=== PATIENT | male | born 1990 ===

== ENCOUNTER 2016-09-05 07:00 | Observation (INO) | payer OTHER ==
[~2016-09-05] VITALS: Ht 165.1 cm; Wt 78.0 kg
[2016-09-18] VITALS (13 sets, daily range): BP systolic 106–143; BP diastolic 62–89
[2016-09-18] MEDS ORDERED: Thrombin 5000 units TOPIC ONE (06:29)
[2016-09-18] MEDS ORDERED: Surgicel 4in x 8in TOPIC ONE ×2 (06:30→11:30)
[2016-09-18] MEDS ORDERED: Vancomycin 1gm inj IVPB ONE (06:30)
[2016-09-18] MEDS ORDERED: Lidocaine 1% Plain 30 ml INJ ONE (06:30)
[2016-09-18] MEDS ORDERED: Bupivacaine 0.5% Inj 30 ml vial INJ ONE (06:31)
[2016-09-18] MEDS ORDERED: Bacitracin 50000 Units Vial ONE (06:31)
[2016-09-18] MEDS ORDERED: Dexamethasone 20mg/5ml IVP ONE (07:00)
[2016-09-18] MEDS ORDERED: ceFAZolin sod 1 GM in NS 55 ML IVPB ONE (07:00)
[2016-09-18] MEDS ORDERED: NORCO 10-325 T1 EACH ORAL (08:51)
--- NOTE | 2016-09-18 10:55 | Pre-Procedure Note/Attestation ---
Pre-Procedure Note/Attestation Complete Prior to Procedure Planned Procedure: not applicable Procedure Narrative: Cervical Artificial Disc, possible ACDF C3-4, C4-5 Indications for Procedure Pre-Operative Diagnosis: Post trauma discogenic neck pain Attestation I attest that I discussed the nature of the procedure; its benefits; risks and complications; and alternatives (and the risks and benefits of such alternatives ), prior to the procedure, with the patient (or the patient's legal high school admissions representative). I attest that, if there was a reasonable possibility of needing a blood transfusion, the patient (or the patient's legal high school admissions representative) was given the [place] Department of Health Services standardized written summary, pursuant to the [place] Blood Safety Act ([place] Health and Safety Code # 1645, as amended). I attest that I re-evaluated the patient just prior to the surgery and that there has been no change in the patient's H&P, except as documented below: MELANIE BURROUGHS Sep 18, 2016 10:55
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
[2016-09-18] MEDS ORDERED: fentaNYL 250mcg/5ml ONE (11:30)
[2016-09-18] MEDS ORDERED: NS Irrig 1000ml ONE (11:30)
[2016-09-18] MEDS ORDERED: Dexamethasone 4mg/ml vial ONE (11:30)
[2016-09-18] MEDS ORDERED: Neostigmine 1mg/ml 10ml Inj ONE (11:30)
[2016-09-18] MEDS ORDERED: Lidocaine 1% MPF 10mg/ml 5ml ONE (11:30)
[2016-09-18] MEDS ORDERED: Glycopyrrolate 0.2mg/ml 1ml Vial ONE (11:30)
[2016-09-18] MEDS ORDERED: Zemuron 50mg/5ml Inj IV ONE (11:30)
[2016-09-18] MEDS ORDERED: Sterile Water Irrig 1000ml IRRIG ONE (11:30)
[2016-09-18] MEDS ORDERED: fentaNYL 100 mcg/2 mL IV ONE (11:30)
[2016-09-18] MEDS ORDERED: LR 1000ml ONE (11:30)
[2016-09-18] MEDS ORDERED: Propofol 10mg/ml 100ml btl IV ONE (11:30)
[2016-09-18] MEDS ORDERED: Labetalol 5mg/ml 20ml vial IV ONE (11:30)
[2016-09-18] MEDS ORDERED: Sterile Water For Irrig 2000ml IRRIG ONE (11:30)
[2016-09-18] MEDS ORDERED: LR 1000ml 1,000 ML IVLG SCH (11:43)
--- NOTE | 2016-09-18 11:43 | Anethesia Preoperative Eval ---
Anesthesia Pre-op PMH/ROS General Date of Evaluation: Sep 18, 2016 Time of Evaluation: 11:31 Anesthesiologist: Yogi ASA Score: ASA 2 Mallampati Score Class I : Soft palate, uvula, fauces, pillars visible Class II: Soft palate, uvula, fauces visible Class III: Soft palate, base of uvula visible Class IV: Only hard plate visible Mallampati Classification: Class II Surgeon: Jass Diagnosis: Back Pain Surgical Procedure: ADR C3-4, C5-6 Anesthesia History: none Family History: no anesthesia problems Allergies: Coded Allergies: No Known Allergies (Unverified , 09/17/16) Medications: see eMAR Past Medical History Neurologic/Psychiatric: Reports: depression/anxiety Endocrine: Reports: other - Enlarged Thyroid Anesthesia Pre-op Phys. Exam Physician Exam Last Vital Signs Date Time Temp Pulse Resp B/P Pulse Ox O2 Delivery O2 Flow Rate FiO2 09/18/16 07:46 98.4 86 20 133/82 99 Room Air Constitutional: NAD Neurologic: CN 2-12 intact Cardiovascular: RRR Respiratory: CTA Gastrointestinal: S/NT/ND Airway Exam Mallampati Score: Class II MO: full Teeth: intact Anesthesia Pre-op A/P Risk Assessment & Plan Assessment: ASA 2 Plan: GA, BIS, Glidescope Pre-Antibiotics Dru Grams Ancef IV Given Within 1 Hr of Incision: Yes Time Given: 12:16 Roberto Calix MD Sep 18, 2016 11:43
[2016-09-18] MEDS ORDERED: Norco 7.5mg/325mg tab ORAL PRN (11:45)
[2016-09-18] MEDS ORDERED: Ketorolac 60mg Inj IV PRN (11:45)
[2016-09-18] MEDS ORDERED: Midazolam 2mg/2ml Inj IVP PRN (11:45)
[2016-09-18] MEDS ORDERED: Atropine Inj 1mg/10ml Syr IV PRN (11:45)
[2016-09-18] MEDS ORDERED: Hydromorphone 0.5mg/0.5ml inj IVP PRN (11:45)
[2016-09-18] MEDS ORDERED: fentaNYL 100 mcg/2 mL IV PRN (11:45)
[2016-09-18] MEDS ORDERED: Norco 5mg/325mg tab ORAL PRN (11:45)
[2016-09-18] MEDS ORDERED: LORazepam Inj 2mg/ml 1ml IV PRN (11:45)
[2016-09-18] MEDS ORDERED: Metoclopramide 10mg/2ml Inj IVP PRN (11:45)
[2016-09-18] MEDS ORDERED: Ketorolac 30mg Inj IV PRN (11:45)
[2016-09-18] MEDS ORDERED: Meperidine 25mg/0.5ml Inj (FOR RIGORS ONLY) IV PRN (11:45)
[2016-09-18] MEDS ORDERED: DiphenhydrAMINE 50mg/ml Inj IVP PRN (11:45)
[2016-09-18] MEDS ORDERED: Oxycodone/Acetaminophen 5-325 ORAL PRN (11:45)
[2016-09-18] MEDS ORDERED: Acetaminophen (Non formulary) 100 ML IV ONE (12:00)
[2016-09-18] MEDS ORDERED: Muri-Lube ONE (12:50)
--- NOTE | 2016-09-18 14:55 | Brief Operative Note ---
Immediate Post Operative Note Operative Note Pre-op Diagnosis: Post trauma discogenic neck pain Procedure: ADR C3-4, C4-5 Xray SSEP microscope Post-op Diagnosis: same as pre-op Findings: consistent w/pre-op dx studies Surgeon: Jass DE LA PAZ Visual Manager: Jocelynn DURAN Anesthesiologist: Yogi DE LA PAZ Anesthesia: general Specimen: none Complications: none Condition: stable Estimated Blood Loss: minimal Drains: none Implant(s) used?: Yes MELANIE BURROUGHS Sep 18, 2016 14:55
--- NOTE | 2016-09-18 15:19 | Immediate Post-Op Evaluation ---
Immediate Post-Op Evalulation Immediate Post-Op Evalulation Procedure: ADR C3-4, C5-6 Date of Evaluation: Sep 18, 2016 Time of Evaluation: 15:28 IV Fluids: 1700 LR Blood Products: 0 Estimated Blood Loss: 75 Urinary Output: 0 Blood Pressure Systolic: 107 Blood Pressure Diastolic: 71 Pulse Rate: 69 Respiratory Rate: 16 O2 Sat by Pulse Oximetry: 100 Temperature (Fahrenheit): 97.6 Pain Score (1-10): 2 Nausea: No Vomiting: No Complications 0 Patient Status: awake, reacts, patent, extubated, none Hydration Status: adequate Dru Grams Ancef IV Given Within 1 Hr of Incision: Yes Time Given: 12:51 Roberto Calix MD Sep 18, 2016 15:19
[2016-09-18] MEDS ORDERED: Transderm Scop 1.5mg TDERMAL PRN (16:00)
[2016-09-18] MEDS: D5 1/2NS 1,000 ML IV SCH (16:00)
[2016-09-18] MEDS ORDERED: Chloraseptic Spray 20mL Bottle ORAL PRN (16:00)
[2016-09-18] MEDS ORDERED: Morphine Sulfate 4mg/ml Inj IM PRN (16:00)
[2016-09-18] MEDS ORDERED: HYDROmorphone 1mg/ml Carpuject SUBQ PRN (16:00)
--- NOTE | 2016-09-18 16:00 | Diagnostic Imaging Report ---
Indications: Neck pain radiating to back, cervical disc replacement Technique: The procedure including fluoroscopy performed by Dr. Regan. Portable intraoperative spot film images of cervical spine obtained in lateral projections. Findings: Comparison: None Initial image demonstrates localizing needle tip overlying the C3-4 disc space. Subsequent images demonstrate placement of prostheses within the C3-4 and C4-5 disc spaces. The C4-5 prosthesis appears to extend beyond the posterior margin of the adjacent vertebral bodies by approximately 1 mm. IMPRESSION: Intraoperative changes as described.
[2016-09-18] MEDS: Norco 10mg/325mg tab ORAL PRN (18:18)
--- NOTE | 2016-09-18 18:59 | Cardiology Progress Note ---
Assessment/Plan Assessment/Plan [id number] Objective Last 24 Hour Vital Signs Date Time Temp Pulse Resp B/P Pulse Ox O2 Delivery O2 Flow Rate FiO2 09/18/16 17:59 98.2 94 17 136/77 99 Nasal Cannula 09/18/16 17:15 97.7 16 119/72 98 Nasal Cannula 09/18/16 17:00 97.9 76 17 126/67 99 Nasal Cannula 3.0 09/18/16 16:45 98.1 76 16 143/79 99 Nasal Cannula 3.0 09/18/16 16:27 98.3 09/18/16 16:25 98.3 77 15 111/71 100 Nasal Cannula 3.0 09/18/16 16:10 86 15 115/75 100 Nasal Cannula 3.0 09/18/16 15:55 72 19 116/76 100 Nasal Cannula 3.0 09/18/16 15:40 72 19 122/75 100 Nasal Cannula 3.0 09/18/16 15:27 79 12 129/62 100 Nasal Cannula 3.0 09/18/16 15:22 73 18 113/73 100 Simple Mask 6.0 09/18/16 15:19 69 16 100 09/18/16 15:17 97.6 73 17 106/68 100 Simple Mask 6.0 09/18/16 07:46 98.4 86 20 133/82 99 Room Air TAYLOR MOYER Sep 18, 2016 18:59
--- NOTE | 2016-09-18 21:00 | Operative Note - Dictated ---
DATE OF OPERATION: 09/18/2016 PRIMARY SURGEON: Quan Regan M.D. DITCH TENDER: RENEE Lobato. ANESTHESIOLOGIST: Roberto Calix M.D. ANESTHESIA: General with intubation. ESTIMATED BLOOD LOSS: Minimal. COMPLICATIONS: None. POSTOP CONDITION: Good/stable. PREOPERATIVE DIAGNOSIS: Posttraumatic cervicogenic neck pain. POSTOPERATIVE DIAGNOSIS: Posttraumatic cervicogenic neck pain. OPERATIVE PROCEDURES: 1. C3-C4 and C4-C5 artificial disc replacement. 2. SSEP monitoring. 3. High-powered microscopic dissection. 4. Intraoperative fluoroscopy interpreted by surgeon. PROCEDURE IN DETAIL: The patient was brought to the operating room and in the supine position, general anesthesia with intubation was induced. Intravenous antibiotics and intravenous Decadron were administered 30 minutes prior to incision time. The anterior cervical region was sterilely prepped and draped free in usual sterile fashion. Transverse incision on left was placed sharply through dermis and epidermis at the appropriate interval. Electrocautery dissection was carried through the subcutaneous tissue to level of the platysmas muscle that was identified, isolated, and transected in line with the incision. Dissection was carried medial to the left sternocleidomastoid muscle and the carotid sheath between/through the deep cervical fascia and pretracheal fascia to the midline between the right and left longus colli muscles. Prevertebral fascia was incised. Spinal needle bent so as not to allow penetration greater than 3 mm was placed into the disc space. Cross-table imaging was obtained demonstrating the correct level for further dissection. Level was marked. Needle removed. Subperiosteal dissection of the longus colli muscles over the involved intervals. Retractors placed. C3-C4: Anterior inferior lip on C3 was resected under high-power magnification with retractors placed. C3-C4: Diskectomy performed to but not through the posterior longitudinal ligament. Midas-Bharath bur dissection utilized for flattening of the inferior C3 vertebral body. Subchondral bone was not violated any time. Resection of posterior longitudinal ligament. SSEP monitoring stable. No dural tears or leaks noted anytime during the procedure. Appropriate instrumentation sequences undertaken after sizing and determination of the appropriate height/depth of prosthesis with fluoroscopic guidance. Holes were drilled, utilized in the appropriate instrumentation followed with real cutting and implantation of the artificial disk. Fit was excellent. Fluoroscopic imaging demonstrated excellent alignment and position. The patient is stable. Retractor was moved to the C4-C5 interval. Annulotomy performed. Microdiscectomy performed. Resection of the anterior inferior lip of C4 vertebral body. Posterior anulus resected with decompression of spinal cord. No dural tears or leaks anytime during the procedure. SSEP monitoring stable. After appropriate trial utilization and determination, an artificial disc was implanted after appropriate drilling/real cutting and implantation of the artificial disk. Fit was excellent. Fluoroscopic guidance/imaging revealed excellent alignment. Wound was irrigated with antibiotic-containing saline. FloSeal applied. No obvious excoriation or laceration of vital structures. Sequential reapproximation of the platysmas muscle and subcutaneous tissue followed with transverse surgical strips and sterile bandage maintained in place with tape. The patient was awakened, extubated in the operating room, and transported to postop recovery in good stable condition. Quan Regan M.D. DR: ELÍAS JOB#: [id number] CC:
[2016-09-18] MEDS: ceFAZolin sod 1 GM in D5W 55 ML IV SCH (21:56)
[2016-09-19] VITALS: BP 146/106
[2016-09-19] MEDS: D5 1/2NS 1,000 ML IV SCH (00:03)
[2016-09-19 04:00] VITALS: BP 137/94
[2016-09-19] MEDS: Norco 10mg/325mg tab ORAL PRN (04:44)
[2016-09-19] MEDS: ceFAZolin sod 1 GM in D5W 55 ML IV SCH (04:45)
--- NOTE | 2016-09-19 07:19 | 48 Hour Post Anesthesia Eval ---
Post Anesthesia Evaluation Procedure: ADR C3-4, C5-6 Date of Evaluation: Sep 19, 2016 Time of Evaluation: 06:18 Blood Pressure Systolic: 137 0: 94 Pulse Rate: 94 Respiratory Rate: 15 Temperature (Fahrenheit): 97.6 O2 Sat by Pulse Oximetry: 99 Airway: patent Nausea: No Vomiting: No Pain Intensity: 2 Hydration Status: adequate Cardiopulmonary Status: Stable Mental Status/LOC: patient returned to baseline Follow-up Care/Observations: 0 Post-Anesthesia Complications: 0 Follow-up care needed: N/A Roberto Calix MD Sep 19, 2016 07:19
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
[2016-09-19 08:00] VITALS: BP 144/89
[2016-09-19] MEDS ORDERED: Tubing IV Secondary IV ONE (09:29)
[2016-09-19] MEDS ORDERED: D5NS 1000ml IV ONE (09:29)
--- NOTE | 2016-09-19 10:45 | Progress Note ---
DATE: 09/19/2016 ACUTE PAIN MANAGEMENT PHYSICIAN PROGRESS NOTE OBJECTIVE: VITAL SIGNS: Afebrile. Pulse 94, respirations 15, and oxygen saturation 99% on room air. LABORATORY STUDIES: No interval laboratory studies. MEDICATIONS: Medication administration record reviewed. Medications include antibiotics, Fioricet, Benadryl, Soma, Chloraseptic spray, [place], morphine, Mylanta, Zofran, Phenergan, scopolamine patch, and Dilaudid. I spent over 60 minutes in consultation today. I saw the patient at bedside. I discussed the case with the hospitalist, Dr. Morgan along with the charge nurse, RN, Venessa. The patient has been recovering well since his neck surgery yesterday. I did relationship counselor the patient to discontinue smoking. He has been swallowing, breathing, and phonating. He is tolerating regular diet. The Chloraseptic sprays helpful for topical sore throat complaints. The patient has been using [place] and Soma with good efficacy and analgesia. The patient has been ambulating independently in and out of bed. The physical therapist has seen the patient at the bedside and educating the patient regarding transfers in and out of bed. The patient has good social support with his parents and will stay with them for the next two weeks until the patient's follow up with Dr. Regan in outpatient clinic around 10/07/2016. I did leave a prescription for Soma for outpatient usage. The patient already has a good amount of Rockfield available. Neck dressing appears clean and dry. There is normal postoperative swelling but with no evidence for gross infection. At this point, I agree with the discharge trial home and see no contraindications. Vital signs are stable. The patient has no fevers. Abdi Murphy M.D. DR: AYAZ JOB#: [id number] CC:
== END 2016-09-19 09:30 | disposition home or self-care (01) ==
LOC: SDSOVERFLO 09-18 07:11 → INTOOBSV 09-18 07:11 → 3E 09-18 15:49
DX: M50.21 Other cervical disc displacement, high cervical region (principal); G89.18 Other acute postprocedural pain; F17.210 Nicotine dependence, cigarettes, uncomplicated; F32.9 Major depressive disorder, single episode, unspecified; F41.9 Anxiety disorder, unspecified; E04.9 Nontoxic goiter, unspecified
CPT/HCPCS: 22856; 22858; 36415; 72040; 76001; 86850; 86900; 86901; 87081; 96360; 96361; 97110; 97116; 97161; 97530; G0378; G0379; J0690; J1100; J1885; J2001; J2250; J2405; J2704; J2710; J3010; J3370; J3490; J7120; 94003; 94150